=== PATIENT | female | born 2000 | race Two or more races ===

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

== ENCOUNTER 2020-01-10 08:41 | Outpatient (CLI) | payer OTHER | END 2020-01-10 23:59 | disposition home or self-care (01) | LOC: CFH 08:41 | PROVIDERS: ATTEND Family Medicine | DX: N64.4 Mastodynia (principal); N83.292 Other ovarian cyst, left side; N83.291 Other ovarian cyst, right side | CPT/HCPCS: 76642; 76830 ==

== ENCOUNTER → 2020-03-04 | Outpatient (CLI) | payer OTHER ==
[2020-03-04 09:28] LABS: BASOPHILS # (AUTO) 0.03 x10^3/uL (0-0.1); BASOPHILS % (AUTO) 0 % (0-1); EOSINOPHILS # (AUTO) 0.07 x10^3/uL (0-0.4); EOSINOPHILS % (AUTO) 1 % (1-7); LYMPHOCYTES # (AUTO) 2.35 x10^3/uL (1-3.4); LYMPHOCYTES % (AUTO) 34 % (22-44); MD NO; MEAN CORPUSCULAR HEMOGLOBIN 30.3 pg (27.0-34.8); MEAN CORPUSCULAR HGB CONC 33.4 g/dL (32.4-35.8); MEAN CORPUSCULAR VOLUME 90.8 fL (80-100); MEAN PLATELET VOLUME 8.4 fL (7.4-10.4); MONOCYTES % (AUTO) 6 % (2-9); NEUTROPHILS # (AUTO) 4.04 x10^3/uL (1.8-6.8); NEUTROPHILS % (AUTO) 59 % (42-75); PLATELET COUNT 223 x10^3/uL (130-400); RED BLOOD COUNT 4.57 x10^6/uL (3.82-5.3); RED CELL DISTRIBUTION WIDTH 14.3 % (9.6-15.2)
[2020-03-04 09:36] LABS: ALANINE AMINOTRANSFERASE 16 U/L (12-78); ALBUMIN 3.6 g/dL (3.4-5.0); ANION GAP 4 mmol/L (5-15); CALCIUM 8.8 mg/dL (8.5-10.1); CHLORIDE 112 mmol/L (98-107); CHOLESTEROL, TOTAL 122 mg/dL (140-239); TRIGLYCERIDES 36 mg/dL (50-200); VLDL CHOLESTEROL 7 mg/dL (0-25)
[2020-03-04 09:40] LABS: ALKALINE PHOSPHATASE 65 U/L (45-117); BILIRUBIN,TOTAL 0.8 mg/dL (0.2-1.0); CHOL/HDL RATIO 2.2; HDL CHOL % 45 % (28-40); HDL CHOLESTEROL (DIRECT) 55 mg/dL (40-60); LDL CHOLESTEROL,CALCULATED 60 mg/dL (54-169); LDL/HDL RATIO 1.1 (0.5-3.0); TOTAL PROTEIN 7.1 g/dL (6.4-8.2)
== END | disposition home or self-care (01) ==
LOC: LAB 09:12
PROVIDERS: ATTEND Physician Assistant Medical
DX: Z00.01 Encounter for general adult medical examination with abnormal findings (principal); R60.0 Localized edema
CPT/HCPCS: 36415; 80053; 80061; 83880; 85025

== ENCOUNTER → 2020-04-15 | Outpatient (CLI) | payer OTHER | END | disposition home or self-care (01) | LOC: CFH 06:50 | PROVIDERS: ATTEND Physician Assistant Medical | DX: Z86.79 Personal history of other diseases of the circulatory system (principal) | CPT/HCPCS: 93970 ==

== ENCOUNTER → 2020-10-14 | Outpatient (CLI) | payer OTHER ==
[2020-10-14 10:45] LABS: BASOPHILS % (AUTO) 1 % (0-1); EOSINOPHILS % (AUTO) 1 % (1-7); LYMPHOCYTES % (AUTO) 35 % (22-44); MEAN CORPUSCULAR HEMOGLOBIN 30.4 pg (27.0-34.8); MEAN CORPUSCULAR HGB CONC 33.2 g/dL (32.4-35.8); MEAN PLATELET VOLUME 8.2 fL (7.4-10.4); MONOCYTES % (AUTO) 7 % (2-9); NEUTROPHILS % (AUTO) 57 % (42-75); PLATELET COUNT 266 x10^3/uL (130-400); RED BLOOD COUNT 4.65 x10^6/uL (3.82-5.3); RED CELL DISTRIBUTION WIDTH 13.8 % (9.6-15.2)
[2020-10-14 10:47] LABS: MD NO
[2020-10-14 10:53] LABS: ALANINE AMINOTRANSFERASE 14 U/L (12-78); ALBUMIN 3.8 g/dL (3.4-5.0); ANION GAP 5 mmol/L (5-15); CALCIUM 8.9 mg/dL (8.5-10.1); CHLORIDE 107 mmol/L (98-107)
[2020-10-14 11:03] LABS: ALKALINE PHOSPHATASE 64 U/L (45-117); BILIRUBIN,TOTAL 0.3 mg/dL (0.2-1.0); CHOL/HDL RATIO 2.5; CHOLESTEROL, TOTAL 157 mg/dL (140-239); CREATININE 0.67 mg/dL (0.55-1.02); FREE T4 (FREE THYROXINE) 0.99 ng/dL (0.76-1.46); HDL CHOL % 41 % (28-40); HDL CHOLESTEROL (DIRECT) 64 mg/dL (40-60); LDL CHOLESTEROL,CALCULATED 85 mg/dL (54-169); LDL/HDL RATIO 1.3 (0.5-3.0); TRIGLYCERIDES 41 mg/dL (50-200); VLDL CHOLESTEROL 8 mg/dL (0-25)
== END | disposition home or self-care (01) ==
LOC: LAB 10:19
PROVIDERS: ATTEND Family Medicine
DX: Z00.00 Encounter for general adult medical examination without abnormal findings (principal); R53.83 Other fatigue
CPT/HCPCS: 36415; 80053; 80061; 83036; 84439; 84443; 84481; 85025; 86695; 86696; 86803; 87340; 87491; 87591